=== PATIENT | male | born 1935 | race Caucasian/White ===

== ENCOUNTER 2020-06-05 14:09 | Outpatient (CLI) | payer MEDICARE | END 2020-06-05 14:10 | disposition short-term general hospital (02) | LOC: EMS 14:09 | PROVIDERS: ATTEND Surgery | DX: R42 Dizziness and giddiness (principal); S09.90XA Unspecified injury of head, initial encounter; W18.30XA Fall on same level, unspecified, initial encounter; W22.8XXA Striking against or struck by other objects, initial encounter; Y93.89 Activity, other specified; Y92.009 Unspecified place in unspecified non-institutional (private) residence as the place of occurrence of the external cause | CPT/HCPCS: A0425; A0429 ==

== ENCOUNTER 2020-06-30 09:47 | Outpatient (CLI) | payer MEDICARE | END 2020-06-30 09:48 | disposition short-term general hospital (02) | LOC: EMS 09:47 | PROVIDERS: ATTEND Surgery | DX: R53.81 Other malaise (principal) | CPT/HCPCS: A0425; A0429 ==